=== PATIENT | female | born 1960 | race Caucasian/White ===

== ENCOUNTER → 2019-07-13 14:55 | Outpatient (BNVA) | payer MEDICARE, OTHER, MEDICAID, SELFPAY | PROVIDERS: Family Provider Family Medicine; PCP Family Medicine; Referring Provider Psychiatry & Neurology Psychiatry; Visit Provider Nurse Practitioner Psychiatric/Mental Health | DX: G89.29 Other chronic pain (principal); F31.76 Bipolar disorder, in full remission, most recent episode depressed | CPT/HCPCS: 99213 ==

== ENCOUNTER → 2019-10-12 08:45 | Outpatient (BNVA) | payer MEDICARE, OTHER, MEDICAID, SELFPAY | PROVIDERS: Family Provider Family Medicine; PCP Family Medicine; Visit Provider Nurse Practitioner Psychiatric/Mental Health | DX: F31.76 Bipolar disorder, in full remission, most recent episode depressed (principal); G89.29 Other chronic pain | CPT/HCPCS: 99212 ==

== ENCOUNTER → 2020-01-04 08:01 | Outpatient (BNVA) | payer MEDICARE, OTHER, MEDICAID, SELFPAY | PROVIDERS: Family Provider Family Medicine; PCP Family Medicine; Visit Provider Nurse Practitioner Psychiatric/Mental Health | DX: F31.76 Bipolar disorder, in full remission, most recent episode depressed (principal); G89.29 Other chronic pain; F41.1 Generalized anxiety disorder; Z79.899 Other long term (current) drug therapy | CPT/HCPCS: 99212 ==

== ENCOUNTER → 2020-02-29 14:16 | Outpatient (BNVA) | payer MEDICARE, OTHER, MEDICAID, SELFPAY | PROVIDERS: Family Provider Family Medicine; PCP Family Medicine; Visit Provider Nurse Practitioner Family | DX: L03.90 Cellulitis, unspecified (principal); R06.2 Wheezing; R60.9 Edema, unspecified | CPT/HCPCS: 84450; 87070; 87077; 87186 ==

== ENCOUNTER → 2020-03-21 08:38 | Outpatient (BNVA) | payer MEDICARE, OTHER, MEDICAID, SELFPAY | PROVIDERS: Family Provider Family Medicine; PCP Family Medicine; Visit Provider Nurse Practitioner Psychiatric/Mental Health | DX: G89.29 Other chronic pain (principal); F31.76 Bipolar disorder, in full remission, most recent episode depressed | CPT/HCPCS: G0463 ==

== ENCOUNTER 2020-03-27 08:01 | Outpatient (CLI) | payer MEDICARE, OTHER, MEDICAID, SELFPAY | END 2020-03-27 08:02 | disposition home or self-care (01) | LOC: WOUND 08:02 | PROVIDERS: Family Provider Family Medicine; PCP Family Medicine; Visit Provider Nurse Practitioner Family | DX: L97.812 Non-pressure chronic ulcer of other part of right lower leg with fat layer exposed (principal); L97.822 Non-pressure chronic ulcer of other part of left lower leg with fat layer exposed; L98.492 Non-pressure chronic ulcer of skin of other sites with fat layer exposed | CPT/HCPCS: 11042; G0463 ==

== ENCOUNTER 2020-04-03 14:16 | Outpatient (CLI) | payer MEDICARE, OTHER, MEDICAID, SELFPAY | END 2020-04-03 14:17 | disposition home or self-care (01) | LOC: WOUND 14:17 | PROVIDERS: Family Provider Family Medicine; PCP Family Medicine; Visit Provider Thoracic Surgery (Cardiothoracic Vascular Surgery) | DX: L97.812 Non-pressure chronic ulcer of other part of right lower leg with fat layer exposed (principal); L97.822 Non-pressure chronic ulcer of other part of left lower leg with fat layer exposed; L98.492 Non-pressure chronic ulcer of skin of other sites with fat layer exposed | CPT/HCPCS: 11042 ==

== ENCOUNTER 2020-04-10 09:11 | Outpatient (CLI) | payer MEDICARE, OTHER, SELFPAY | END 2020-04-10 09:12 | disposition home or self-care (01) | LOC: WOUND 09:12 | PROVIDERS: PCP Nurse Practitioner Family; Visit Provider Nurse Practitioner Family | DX: L97.812 Non-pressure chronic ulcer of other part of right lower leg with fat layer exposed (principal); L97.822 Non-pressure chronic ulcer of other part of left lower leg with fat layer exposed; L98.492 Non-pressure chronic ulcer of skin of other sites with fat layer exposed; M79.604 Pain in right leg; M79.605 Pain in left leg; L53.9 Erythematous condition, unspecified; L97.829 Non-pressure chronic ulcer of other part of left lower leg with unspecified severity; L97.819 Non-pressure chronic ulcer of other part of right lower leg with unspecified severity | CPT/HCPCS: 11042; 93970 ==

== ENCOUNTER 2020-04-10 09:54 | Outpatient (CLI) | payer MEDICARE, OTHER, SELFPAY ==
--- NOTE | 2020-04-10 10:00 | USCV_ITS ---
Vonnie Johnson Age: 59 Gender: F : 1960 Exam Date: 04/10/2020 10:42 Ordering Phys: Teresa Hayden Technologist: Esther Olivarez [place] [facility] [place]: [place]ORY: Non healing wound bilateral PROCEDURES: Bilateral duplex Venous Insufficiency study of the Deep and Superficial systems was carried out according to normal protocol with the patient in supine positon for deep system and dependent position for the superficial system. FINDINGS: No DVT or superficial thrombus seen in right or left leg No reflux noted in either right or left leg. CONCLUSIONS No evidence of DVT in the above-mentioned identifiable veins. No significant venous reflux Dr Arvin Bryan MD [facility] (Electronically Signed) Final Date: 11 April 2020 09:22 S
== END 2020-04-10 09:55 | disposition home or self-care (01) ==
LOC: US 09:57
PROVIDERS: PCP Nurse Practitioner Family; Visit Provider Nurse Practitioner Family
DX: M79.604 Pain in right leg (principal); M79.605 Pain in left leg; L53.9 Erythematous condition, unspecified; L97.829 Non-pressure chronic ulcer of other part of left lower leg with unspecified severity; L97.819 Non-pressure chronic ulcer of other part of right lower leg with unspecified severity
CPT/HCPCS: 93970